=== PATIENT | male | born 1940 | race African-American/Black ===

== ENCOUNTER 2024-05-17 00:40 | Emergency (ER) | payer OTHER ==
[~2024-05-17] VITALS: Ht 170.2 cm; Wt 70.0 kg
[2024-05-17 00:43] VITALS: O2SAT 100
[2024-05-17] MEDS: SODIUM CHLORIDE 0.9% 1,000 ML IV ONE ×2 (01:31→05:14)
[2024-05-17 01:45] LABS: HEMATOCRIT. 32.2 % (42.0-52.0); HEMOGLOBIN. 10.6 g/dL (14.0-18.0); MEAN CORPUSCULAR HEMOGLOBIN 27.2 pg (28.0-32.0); MEAN CORPUSCULAR HGB CONC 32.9 g/dL (31.0-37.0); MEAN CORPUSCULAR VOLUME 82.7 fL (80.0-94.0); MEAN PLATELET VOLUME 9.4 fl (7.4-10.4); PLATELET 326 x1000/uL (130-400); WHITE BLOOD COUNT 9.7 x1000/uL (4.5-11.0)
[2024-05-17 01:48] LABS: CHLORIDE 102 mEq/L (98-107); POTASSIUM 4.3 mEq/L (3.5-5.1); SODIUM 140 mEq/L (136-145)
[2024-05-17 01:49] LABS: CALCIUM 9.6 mg/dL (8.7-10.4); CARBON DIOXIDE 27 mEq/L (21-32)
[2024-05-17 01:55] LABS: DIFFERENTIAL COMMENT 1
[2024-05-17 03:44] LABS: TROPONIN I HIGH SENSITIVITY 16 ng/L (3.0-53)
[2024-05-17 04:30] LABS: CREATININE 1.4 mg/dL (0.6-1.3); GLUCOSE 158 mg/dL (70-105); UREA NITROGEN BLOOD 17 mg/dL (9-23)
[2024-05-17 04:32] LABS: TROPONIN I HIGH SENSITIVITY 16 ng/L (3.0-53)
[2024-05-17 09:13] LABS: IRON 33 ug/dL (65-175)
[2024-05-17 09:16] LABS: TOTAL IRON BINDING CAPACITY 412 ug/dl (250-425)
[2024-05-17 09:19] LABS: T4 FREE 1.17 ng/dL (0.89-1.76); THYROID STIMULATING HORMONE 3.28 uIU/mL (0.55-4.78)
[2024-05-17 09:29] LABS: FOLIC ACID (FOLATE) SERUM 13.62 ng/mL (>5.38)
[2024-05-17 09:48] VITALS: BP 110/55; PULSE 82; RESP 16; TEMP 36.55848; O2SAT 98
[2024-05-17 09:59] LABS: VITAMIN B12 SERUM 13320 pg/mL (211-911)
[2024-05-17 13:19] LABS: PLATELET ESTIMATE NORMAL
== END 2024-05-17 10:26 | disposition short-term general hospital (02) ==
LOC: ER 01:03 → EDBEDREQTM 08:38 → CANBEDREQ 08:48 → ER 10:26
DX: R55 Syncope and collapse (principal); I10 Essential (primary) hypertension; Z88.6 Allergy status to analgesic agent; Z85.118 Personal history of other malignant neoplasm of bronchus and lung
CPT/HCPCS: 99285; 96361; 96360; 71045; 80048; 82607; 82746; 83036; 83880; 84439; 83540; 83550; 84443; 85025; 84484; 93005; 36415; J7030

== ENCOUNTER 2024-05-24 19:01 | Emergency (ER) | payer OTHER ==
[~2024-05-24] VITALS: Ht 188 cm; Wt 70.0 kg
[2024-05-24 19:09] VITALS: O2SAT 99
[2024-05-24] MEDS ORDERED: TOPUD MT (20:47)
[2024-05-24] MEDS ORDERED: ONDA4TAB50 MT (20:47)
[2024-05-24] MEDS ORDERED: AZIT250T12 MT (20:47)
[2024-05-24 21:32] LABS: BASOPHILS % 0.8 % (0.0-2.0); EOSINOPHILS % 0.8 % (0.0-5.0); HEMATOCRIT. 32.6 % (42.0-52.0); HEMOGLOBIN. 10.6 g/dL (14.0-18.0); LYMPHOCYTES % 6.4 % (20.0-50.0); MEAN CORPUSCULAR HEMOGLOBIN 26.9 pg (28.0-32.0); MEAN CORPUSCULAR HGB CONC 32.4 g/dL (31.0-37.0); MEAN CORPUSCULAR VOLUME 83.2 fL (80.0-94.0); MEAN PLATELET VOLUME 9.3 fl (7.4-10.4); MONOCYTES % 8.7 % (2.0-8.0); NEUTROPHILS % 83.3 % (40.0-76.0); PLATELET 327 x1000/uL (130-400); RED BLOOD CELL COUNT 3.92 mill/uL (4.7-6.1); RED CELL DISTRIBUTION WIDTH 16.9 % (11.6-14.6); WHITE BLOOD COUNT 9.4 x1000/uL (4.5-11.0)
[2024-05-24 21:33] LABS: DIFFERENTIAL COMMENT 1
[2024-05-24 21:34] LABS: INR 1.3; PROTHROMBIN TIME 14.3 sec (9.6-11.0)
[2024-05-24 21:35] LABS: CHLORIDE 101 mEq/L (98-107); POTASSIUM 4.6 mEq/L (3.5-5.1); SODIUM 137 mEq/L (136-145)
[2024-05-24 21:36] LABS: CALCIUM 9.8 mg/dL (8.7-10.4); CARBON DIOXIDE 28 mEq/L (21-32)
[2024-05-24 21:41] LABS: CREATININE 1.1 mg/dL (0.6-1.3); GLUCOSE 108 mg/dL (70-105); UREA NITROGEN BLOOD 17 mg/dL (9-23)
[2024-05-24 21:42] LABS: TROPONIN I HIGH SENSITIVITY 15 ng/L (3.0-53)
[2024-05-25 00:46] LABS: TROPONIN I HIGH SENSITIVITY 14 ng/L (3.0-53)
[2024-05-25] MEDS: CEFTRIAXONE 1GM/50ML 50 ML IV ONE (01:39)
[2024-05-25 01:56] VITALS: BP 105/49; PULSE 79; RESP 14; O2SAT 96
== END 2024-05-25 02:26 | disposition short-term general hospital (02) ==
LOC: ER 19:01
DX: R53.1 Weakness (principal); R42 Dizziness and giddiness; I10 Essential (primary) hypertension; Z88.6 Allergy status to analgesic agent; Z85.9 Personal history of malignant neoplasm, unspecified
CPT/HCPCS: 99285; 86870; 80048; 83690; 85025; 85610; 86850; 86900; 86901; 84484; 36415; 96372; J0696

== ENCOUNTER 2024-06-15 13:35 | Inpatient (IN) | payer OTHER, MEDICARE ==
[~2024-06-15] VITALS: Ht 185.4 cm; Wt 62.4 kg
[2024-06-15 14:40] LABS: HEMATOCRIT. 33.7 % (42.0-52.0); HEMOGLOBIN. 10.5 g/dL (14.0-18.0); MEAN CORPUSCULAR HEMOGLOBIN 25.7 pg (28.0-32.0); MEAN CORPUSCULAR HGB CONC 31.2 g/dL (31.0-37.0); MEAN CORPUSCULAR VOLUME 82.3 fL (80.0-94.0); MEAN PLATELET VOLUME 9.5 fl (7.4-10.4); PLATELET 415 x1000/uL (130-400); RED CELL DISTRIBUTION WIDTH 17.3 % (11.6-14.6); WHITE BLOOD COUNT 20.9 x1000/uL (4.5-11.0)
[2024-06-15 14:44] LABS: POTASSIUM 5.2 mEq/L (3.5-5.1)
[2024-06-15 14:45] LABS: CALCIUM 9.4 mg/dL (8.7-10.4)
[2024-06-15] MEDS: SODIUM CHLORIDE 0.9% (SEPSIS BOLUS) IV ONE (14:49)
[2024-06-15 14:52] LABS: LACTIC ACID 2.5 mmol/L (0.4-2.0)
[2024-06-15 15:03] LABS: DIFFERENTIAL COMMENT 1
[2024-06-15 15:05] LABS: CREATININE 4.7 mg/dL (0.6-1.3)
[2024-06-15] MEDS: CEFTRIAXONE 1GM/50ML 50 ML IV ONE (15:28)
[2024-06-15 15:35] LABS: PLATELET ESTIMATE NORMAL
[2024-06-15] MEDS ORDERED: AZITHROMYCIN 250 MG in DEXT 5% WATER 250 ML IV SCH (21:30)
[2024-06-15] MEDS: AZITHROMYCIN 500 MG in SODIUM CHLORIDE 0.9% 250 ML IV NR (23:45)
[2024-06-16] VITALS (66 sets, daily range): BP systolic 61–153; BP diastolic 32–141; PULSE 82–117; RESP 15–35; TEMP 34.472–36.83628; O2SAT 91–100
[2024-06-16] MEDS: NOREPINEPHRINE 8MG/250ML PMX 250 ML IV PRN ×2 (01:29→07:18)
[2024-06-16] MEDS ORDERED: ACETAMINOPHEN 325MG TABLET PO PRN (01:45)
[2024-06-16] MEDS ORDERED: GUAIFENESIN/CODEINE 200-20MG/10ML UDC PO PRN (01:45)
[2024-06-16] MEDS ORDERED: IPRATROPIUM/ALBUTEROL 0.5-3(2.5)MG/3ML NEB HHN PRN (01:45)
[2024-06-16] MEDS ORDERED: ONDANSETRON HCL 4MG/2ML INJ IV PRN (01:45)
[2024-06-16] MEDS: VANCOMYCIN 1.5GM PMX (XELLIA) 300 ML IV NR (02:00)
[2024-06-16] MEDS ORDERED: VASOPRESSIN 20 UNIT in SODIUM CHLORIDE 0.9% 99 ML IV PRN (05:00)
[2024-06-16] MEDS ORDERED: PHENYLEPHRINE 50MG/250ML PMX 250 ML IV PRN (05:00)
[2024-06-16] MEDS ORDERED: PHENYLEPHRINE 50 MG in DEXTROSE 5% WATER 250 ML IV PRN (05:00)
[2024-06-16] MEDS ORDERED: METHYLPREDNISOLONE SOD SUCC 125MG/2ML (ACT-O-VIAL) ONE (05:44)
[2024-06-16] MEDS: METHYLPREDNISOLONE SOD SUCC 125MG/2ML (ACT-O-VIAL) IV SCH (05:47)
[2024-06-16 06:08] LABS: CLARITY URINE CLOUDY (CLEAR); COLOR URINE DARK YELLOW (YELLOW); GLUCOSE URINE NEGATIVE (NEGATIVE); KETONES URINE NEGATIVE (NEGATIVE); LEUKOCYTE ESTERASE URINE 2+ (NEGATIVE); NITRITE URINE NEGATIVE (NEGATIVE); OCCULT BLOOD URINE 3+ (NEGATIVE); PH URINE 5.5 (4.5-8.0); PROTEIN URINE 1+ (NEGATIVE); SPECIFIC GRAVITY URINE 1.015 (1.005-1.030); UROBILINOGEN URINE 0.2 E.U./dL (0.2-1.0)
[2024-06-16 06:22] LABS: *AMPHETAMINES SCREEN URINE NEGATIVE (NEGATIVE); *BENZODIAZEPINES SCREEN URINE NEGATIVE (NEGATIVE)
[2024-06-16 06:23] LABS: *BARBITURATES SCREEN URINE NEGATIVE (NEGATIVE); *COCAINE SCREEN URINE NEGATIVE (NEGATIVE); CANNABINOID URINE SCREEN NEGATIVE (NEGATIVE); ECSTASY MDMA SCREEN URINE NEGATIVE (NEGATIVE); METHADONE URINE SCREEN NEGATIVE (NEGATIVE); OPIATES URINE SCREEN PRESUMPTIVE POSITIVE (NEGATIVE); PHENCYCLIDINE URINE SCREEN NEGATIVE (NEGATIVE)
[2024-06-16 06:30] LABS: CREATINE KINASE MB FRACTION 26.5 ng/mL (0.5-3.6)
[2024-06-16 06:43] LABS: CREATINE KINASE 1805 IU/L (46-171)
[2024-06-16 06:56] LABS: CHLORIDE 108 mEq/L (98-107); POTASSIUM 5.9 mEq/L (3.5-5.1); SODIUM 143 mEq/L (136-145)
[2024-06-16 06:57] LABS: CALCIUM 8.8 mg/dL (8.7-10.4); CARBON DIOXIDE 17 mEq/L (21-32); HEMATOCRIT 33.4 % (42.0-52.0); HEMOGLOBIN 10.4 g/dL (14.0-18.0); MEAN CORPUSCULAR HGB CONC 31.1 g/dL (31.0-37.0); MEAN CORPUSCULAR VOLUME 83.7 fL (80.0-94.0); PLATELET 453 x1000/uL (130-400); RED BLOOD CELL COUNT 3.98 mill/uL (4.7-6.1); RED CELL DISTRIBUTION WIDTH 17.3 % (11.6-14.6); WHITE BLOOD COUNT 25.8 x1000/uL (4.5-11.0)
[2024-06-16 07:01] LABS: TROPONIN I HIGH SENSITIVITY 4479 ng/L (3.0-53)
[2024-06-16 07:02] LABS: GLUCOSE 174 mg/dL (70-105); UREA NITROGEN BLOOD 73 mg/dL (9-23)
[2024-06-16 07:04] LABS: PHOSPHORUS 7.6 mg/dL (2.5-4.9)
[2024-06-16 07:06] LABS: SQUAMOUS EPITHELIAL CELL URINE FEW /lpf (RARE/1+)
[2024-06-16 07:07] LABS: FINE GRANULAR CASTS URINE 0-5 /lpf; RBC URINE 50-100 /hpf (0-2)
[2024-06-16 07:07] LABS: THYROID STIMULATING HORMONE 5.38 uIU/mL (0.55-4.78)
[2024-06-16 07:08] LABS: YEAST URINE 1+
[2024-06-16 07:09] LABS: BACTERIA URINE TRACE
[2024-06-16 08:28] LABS: INR 2.7; PROTHROMBIN TIME 27.9 sec (9.6-11.0)
[2024-06-16] MEDS ORDERED: HEPARIN 25,000 UNITS PREMIX 250 ML IV SCH (08:30)
[2024-06-16 08:33] LABS: LACTIC ACID 4.5 mmol/L (0.4-2.0)
[2024-06-16 08:36] LABS: BG BASE EXCESS -8.6 mmol/L (-2.0-3.0); BG CARBOXYHEMOGLOBIN 0.3 % (0.5-1.5); BG DEOXYHEMOGLOBIN 1.5 % (0.0-5.0); BG FRACTION INSPIRED OXYGEN 30; BG HCO3 ACT 16.3 mmol/L (21.0-28.0); BG METHEMOGLOBIN 0.3 % (0.5-1.5); BG OXYGEN SATURATION 98.5 % (94.0-98.0); BG OXYHEMOGLOBIN 97.9 % (94.0-98.0); BG PCO2 31.9 mmHg (35.0-48.0); BG PH 7.327 (7.350-7.450); BG PO2 120.8 mmHg (83.0-108.0); BG SAMPLE SITE RIGHT BRACHIAL; BG TOTAL HEMOGLOBIN 10.8 g/dL (13.5-17.5); BG VENT MODE NASAL CANNULA
[2024-06-16] MEDS ORDERED: SODIUM ZIRCONIUM CYCLOSILICATE 10GM/PACKET PO ONE (08:45)
[2024-06-16] MEDS: SODIUM CHLORIDE 0.9% 1,000 ML IV SCH (09:13)
[2024-06-16] MEDS ORDERED: LIDOCAINE HCL 1% 10 MG/ML 10ML VIAL ONE (09:25)
[2024-06-16] MEDS: SODIUM ZIRCONIUM CYCLOSILICATE 10GM/PACKET PO NR (09:36)
[2024-06-16] MEDS: DEXTROSE 50% WATER 50ML SYRINGE IV NR (09:37)
[2024-06-16] MEDS: SODIUM BICARBONATE 8.4% 50MEQ/50ML SYR IV NR ×2 (09:37→09:38)
[2024-06-16] MEDS: INSULIN REGULAR (HUMULIN R) 1000UNITS/10ML VIAL IV NR (09:45)
[2024-06-16 10:10] LABS: INR 2.8; PROTHROMBIN TIME 29.4 sec (9.6-11.0)
[2024-06-16] MEDS: LACTULOSE 20G/30ML UDC PO NR (10:17)
[2024-06-16] MEDS: TAZO IV SCH (10:17)
[2024-06-16] MEDS: PIPERACILLIN IV SCH (10:17)
[2024-06-16] MEDS: GUAIFENESIN 600MG ER TABLET PO SCH (10:17)
[2024-06-16] MEDS: MIDODRINE HCL 5MG TABLET PO SCH (13:28)
[2024-06-16 15:23] LABS: POTASSIUM 4.9 mEq/L (3.5-5.1)
[2024-06-16 15:25] LABS: CALCIUM 8.5 mg/dL (8.7-10.4)
[2024-06-16 15:29] LABS: CREATININE 4.2 mg/dL (0.6-1.3)
[2024-06-17] VITALS (72 sets, daily range): BP systolic 67–151; BP diastolic 32–109; PULSE 77–86; RESP 11–29; TEMP 36.00288–36.89184; O2SAT 91–100
[2024-06-17 07:02] LABS: HEMOGLOBIN. 9.7 g/dL (14.0-18.0); MEAN CORPUSCULAR HEMOGLOBIN 26.8 pg (28.0-32.0); MEAN CORPUSCULAR HGB CONC 32.4 g/dL (31.0-37.0); MEAN CORPUSCULAR VOLUME 82.8 fL (80.0-94.0); MEAN PLATELET VOLUME 9.5 fl (7.4-10.4); PLATELET 369 x1000/uL (130-400); RED BLOOD CELL COUNT 3.63 mill/uL (4.7-6.1); RED CELL DISTRIBUTION WIDTH 17.1 % (11.6-14.6); WHITE BLOOD COUNT 20.9 x1000/uL (4.5-11.0)
[2024-06-17 07:03] LABS: DIFFERENTIAL COMMENT 1
[2024-06-17 07:12] LABS: CHLORIDE 113 mEq/L (98-107); POTASSIUM 4.1 mEq/L (3.5-5.1); SODIUM 150 mEq/L (136-145)
[2024-06-17 07:13] LABS: CARBON DIOXIDE 24 mEq/L (21-32)
[2024-06-17 07:18] LABS: CREATININE 3.5 mg/dL (0.6-1.3); GLUCOSE 184 mg/dL (70-105); UREA NITROGEN BLOOD 82 mg/dL (9-23)
[2024-06-17 07:20] LABS: CREATINE KINASE 1121 IU/L (46-171)
[2024-06-17] MEDS: SODIUM CHLORIDE 0.45% 1,000 ML IV SCH (13:55)
[2024-06-17] MEDS: VANCOMYCIN 1.5GM PMX (XELLIA) 300 ML IV SCH (13:55)
[2024-06-17 13:59] LABS: PLATELET ESTIMATE NORMAL
[2024-06-17] MEDS: AZITHROMYCIN 250 MG TABLET PO SCH (15:00)
[2024-06-17] MEDS: METHYLPREDNISOLONE SOD SUCC 40MG/ML (ACT-O-VIAL) IV SCH (20:56)
[2024-06-18] VITALS (59 sets, daily range): BP systolic 69–127; BP diastolic 33–76; PULSE 73–136; RESP 8–25; TEMP 36.44736–36.55848; O2SAT 95–100
[2024-06-18 05:53] LABS: CARBON DIOXIDE 23 mEq/L (21-32); CHLORIDE 115 mEq/L (98-107); SODIUM 152 mEq/L (136-145)
[2024-06-18 05:54] LABS: CALCIUM 8.1 mg/dL (8.7-10.4)
[2024-06-18 05:59] LABS: CREATININE 2.5 mg/dL (0.6-1.3); GLUCOSE 160 mg/dL (70-105); UREA NITROGEN BLOOD 73 mg/dL (9-23)
[2024-06-18 06:01] LABS: PHOSPHORUS 4.3 mg/dL (2.5-4.9)
[2024-06-18 06:07] LABS: PREALBUMIN < 5.0 mg/dl (10.0-40.0)
[2024-06-18 06:45] LABS: HEMATOCRIT. 31.8 % (42.0-52.0); HEMOGLOBIN. 9.9 g/dL (14.0-18.0); MEAN CORPUSCULAR HEMOGLOBIN 26.1 pg (28.0-32.0); MEAN CORPUSCULAR HGB CONC 31.3 g/dL (31.0-37.0); MEAN CORPUSCULAR VOLUME 83.5 fL (80.0-94.0); MEAN PLATELET VOLUME 9.6 fl (7.4-10.4); PLATELET 294 x1000/uL (130-400); RED CELL DISTRIBUTION WIDTH 17.7 % (11.6-14.6); WHITE BLOOD COUNT 19.7 x1000/uL (4.5-11.0)
[2024-06-18 06:47] LABS: DIFFERENTIAL COMMENT 1
[2024-06-18] MEDS: IPRATROPIUM/ALBUTEROL 0.5-3(2.5)MG/3ML NEB HHN SCH (08:11)
[2024-06-18] MEDS ORDERED: NALOXONE HCL 0.4MG/ML VIAL IV PRN (10:30)
[2024-06-18] MEDS: HYDROCODONE/ACETAMINOPHEN 10/325MG TABLET PO PRN (10:38)
[2024-06-18 10:44] LABS: INR 3.6; PROTHROMBIN TIME 36.3 sec (9.6-11.0)
[2024-06-18 10:58] LABS: CREATINE KINASE 635 IU/L (46-171)
[2024-06-18] MEDS ORDERED: PHENYLEPHRINE 50MG/250ML PMX 250 ML IV PRN (11:15)
[2024-06-18] MEDS: DIGOXIN 500MCG/2ML AMP IV SCH (11:15)
[2024-06-18 12:28] LABS: ANISOCYTOSIS 1+; PLATELET ESTIMATE NORMAL
[2024-06-18] MEDS: DEXTROSE 5% WATER 1,000 ML IV SCH (12:45)
[2024-06-18 14:53] LABS: LACTIC ACID 2.9 mmol/L (0.4-2.0)
[2024-06-18 15:08] LABS: TROPONIN I HIGH SENSITIVITY 3497 ng/L (3.0-53)
== END 2024-06-18 19:50 | disposition short-term general hospital (02) | DRG 871 ==
LOC: ER 13:38 → CVICU 21:16 → EDBEDREQ 21:27 → EDBEDREQTM 21:27 → EDBEDREQSVC 06-16 01:18 → EDBEDREQTM 06-16 01:18
PROVIDERS: ADMIT Internal Medicine; ATTEND Internal Medicine
PROC: 02HV33Z Insertion of Infusion Device into Superior Vena Cava, Percutaneous Approach (ICD-10-PCS; principal; 2024-06-16)
PROC: B548ZZA Ultrasonography of Superior Vena Cava, Guidance (ICD-10-PCS; 2024-06-16)
DX: A41.9 Sepsis, unspecified organism (principal); I21.A1 Myocardial infarction type 2; J18.9 Pneumonia, unspecified organism; J96.01 Acute respiratory failure with hypoxia; N17.0 Acute kidney failure with tubular necrosis; R65.21 Severe sepsis with septic shock; R57.1 Hypovolemic shock; N13.8 Other obstructive and reflux uropathy; M62.82 Rhabdomyolysis; D68.9 Coagulation defect, unspecified; E87.20 Acidosis, unspecified; I48.20 Chronic atrial fibrillation, unspecified; J44.0 Chronic obstructive pulmonary disease with (acute) lower respiratory infection; Z68.1 Body mass index [BMI] 19.9 or less, adult; B37.49 Other urogenital candidiasis; N18.9 Chronic kidney disease, unspecified; I12.9 Hypertensive chronic kidney disease with stage 1 through stage 4 chronic kidney disease, or unspecified chronic kidney disease; E87.5 Hyperkalemia; R62.7 Adult failure to thrive; D64.9 Anemia, unspecified; E83.39 Other disorders of phosphorus metabolism; E78.5 Hyperlipidemia, unspecified; E11.22 Type 2 diabetes mellitus with diabetic chronic kidney disease; E11.65 Type 2 diabetes mellitus with hyperglycemia; R33.9 Retention of urine, unspecified; S70.01XA Contusion of right hip, initial encounter; S30.0XXA Contusion of lower back and pelvis, initial encounter; I71.43 Infrarenal abdominal aortic aneurysm, without rupture; N28.1 Cyst of kidney, acquired; R91.8 Other nonspecific abnormal finding of lung field; Z85.118 Personal history of other malignant neoplasm of bronchus and lung; Z88.6 Allergy status to analgesic agent; Z88.8 Allergy status to other drugs, medicaments and biological substances; Z79.899 Other long term (current) drug therapy; Z82.49 Family history of ischemic heart disease and other diseases of the circulatory system; Z83.3 Family history of diabetes mellitus; X58.XXXA Exposure to other specified factors, initial encounter; Y93.89 Activity, other specified; Y92.89 Other specified places as the place of occurrence of the external cause; Y99.8 Other external cause status
CPT/HCPCS: 36415; 36573; 36600; 71045; 71250; 74176; 80048; 80202; 80305; 81003; 82040; 82375; 82550; 82553; 82805; 82962; 83036; 83605; 83735; 84100; 84134; 84145; 84443; 84484; 85025; 85027; 87106; 87493; 92610; 93005; 93970; 94640; 99285; C1725; J0456; J0696; J1160; J1815; J2543; J2919; J2920; J3370; J3490; J7030; J7050; J7060; J7070